=== PATIENT | female | born 1980 | race Caucasian/White ===

== ENCOUNTER 2018-04-07 09:13 | Emergency (ER) | payer MEDICAID, OTHER ==
[~2018-04-07 09:13] MED LIST: CEPH500C5 PO
[2018-04-07] MEDS ORDERED: epiNEPHrine 1 mg/ml inj SQ STA ×2 (09:26→10:39)
[2018-04-07] MEDS ORDERED: methylPREDNISolone sod succ 125mg/2ml vial IV ONE (09:30)
[2018-04-07] MEDS ORDERED: normal saline 1000ML IV soln IVB ONE ×2 (09:30)
[2018-04-07] MEDS ORDERED: racepinephrine 11.25mg/0.5ml nebule IH ONE (09:30)
[2018-04-07] MEDS ORDERED: famotidine/PF 10 mg/ml inj IV ONE (09:30)
[2018-04-07] MEDS ORDERED: diphenhydrAMINE 50 mg/ml inj IM ONE (09:30)
[2018-04-07] MEDS ORDERED: ondansetron/PF 4mg/2ml inj IV ONE ×2 (09:30)
[2018-04-07] MEDS ORDERED: tranexamic acid 100mg/ml inj. IV ONE (09:35)
[2018-04-07] MEDS ORDERED: TRANEXAMIC ACID IV ONE (09:40)
[2018-04-07] MEDS ORDERED: NORMAL SALINE IV ONE (09:40)
[2018-04-07 09:53] LABS: BASOPHILS % (AUTO) 0.5 % (0-1); EOSINOPHILS # (AUTO) 0.1 X10'3 (0-0.9); EOSINOPHILS % (AUTO) 2.1 % (0-6); HEMATOCRIT 35.2 % (35.0-45.0); HEMOGLOBIN 11.6 g/dl (12.0-16.0); LYMPHOCYTES # (AUTO) 1.8 X10'3 (1.1-4.8); LYMPHOCYTES % (AUTO) 25.1 % (21-51); MEAN CORPUSCULAR HEMOGLOBIN 27.7 PG (27.0-31.0); MEAN CORPUSCULAR HGB CONC 33.1 % (33.0-36.5); MEAN CORPUSCULAR VOLUME 83.7 FL (78-98); MEAN PLATELET VOLUME 7.4 FL (7.4-10.4); MONOCYTES # (AUTO) 0.4 X10'3 (0-0.9); MONOCYTES % (AUTO) 5.4 % (2-12); NEUTROPHILS # (AUTO) 4.7 X10'3 (1.8-7.7); NEUTROPHILS % (AUTO) 66.9 % (42-75); PLATELET COUNT 360 X10'3 (140-440); RED BLOOD COUNT 4.21 X10'6 (4.20-5.60); RED CELL DISTRIBUTION WIDTH 14.5 % (11.5-14.5)
[2018-04-07 10:07] LABS: ANION GAP 12 (8-16); BLOOD UREA NITROGEN 14 MG/DL (7-18); BUN/CREATININE RATIO 16.9 (6.6-38.0); CALCIUM 8.2 MG/DL (8.5-10.1); CHLORIDE 105 MMOL/L (99-107); CREATININE 0.83 MG/DL (0.40-0.90); GLUCOSE 118 MG/DL (70-104); POTASSIUM 3.2 MMOL/L (3.5-5.1); SODIUM 142 MMOL/L (135-145); TOTAL CARBON DIOXIDE 24.9 MMOL/L (24-32); eGFR 78 ML/MIN
[2018-04-07 10:08] LABS: ALANINE AMINOTRANSFERASE 32 U/L (12-78); ALBUMIN/GLOBULIN RATIO 0.9 (1.1-1.5); ALKALINE PHOSPHATASE 108 IU/L (46-116); ASPARTATE AMINO TRANSFERASE 28 U/L (10-37); BILIRUBIN,TOTAL 0.4 MG/DL (0.1-1.0); ETHANOL < 0.010 GM/DL (0.0-0.010); TOTAL PROTEIN 6.5 G/DL (6.4-8.2)
[2018-04-07] MEDS ORDERED: EPIN0.3P8 IM (10:25)
[2018-04-07 11:00] VITALS: BP 156/85
== END 2018-04-07 11:52 | disposition home or self-care (01) ==
LOC: ER 09:13
DX: T88.6XXA Anaphylactic reaction due to adverse effect of correct drug or medicament properly administered, initial encounter (principal); T43.625A Adverse effect of amphetamines, initial encounter; Y92.89 Other specified places as the place of occurrence of the external cause; Z79.899 Other long term (current) drug therapy
CPT/HCPCS: 36415; 80053; 80320; 85025; 86885; 86900; 86901; 93005; 94640; 94760; 96361; 96365; 96372; 96375; 99291; J0171; J1200; J2405; J2930; J3490; J7030

== ENCOUNTER 2022-06-19 17:29 | Emergency (ER) | payer MEDICAID ==
[~2022-06-19] VITALS: Ht 175.3 cm; Wt 95.5 kg
[~2022-06-19 17:29] MED LIST changes: -CEPH500C5 PO; +EPIN0.3P8 IM
[2022-06-19 18:06] VITALS: BP 116/79
[2022-06-19 18:26] LABS: BASOPHILS % (AUTO) 0.8 % (0-1); EOSINOPHILS # (AUTO) 0.2 X10'3 (0-0.9); EOSINOPHILS % (AUTO) 2.8 % (0-6); HEMATOCRIT 40.2 % (35.0-45.0); HEMOGLOBIN 13.6 g/dl (12.0-16.0); LYMPHOCYTES # (AUTO) 2.2 X10'3 (1.1-4.8); LYMPHOCYTES % (AUTO) 37.4 % (21-51); MEAN CORPUSCULAR HEMOGLOBIN 30.3 PG (27.0-31.0); MEAN CORPUSCULAR HGB CONC 33.8 g/dL (33.0-36.5); MEAN CORPUSCULAR VOLUME 89.6 FL (78-98); MEAN PLATELET VOLUME 9.1 FL (7.4-10.4); MONOCYTES # (AUTO) 0.5 X10'3 (0-0.9); MONOCYTES % (AUTO) 9.2 % (2-12); NEUTROPHILS % (AUTO) 49.8 % (42-75); PLATELET COUNT 224 X10'3 (140-440); RED BLOOD COUNT 4.49 X10'6 (4.20-5.60); RED CELL DISTRIBUTION WIDTH 13.9 % (11.5-14.5); WHITE BLOOD COUNT 5.9 X10'3 (4.5-11.0)
[2022-06-19 18:37] LABS: ALANINE AMINOTRANSFERASE 30 U/L (12-78); ALBUMIN 3.8 G/DL (3.4-5.0); ALBUMIN/GLOBULIN RATIO 1.2 (1.1-1.5); ALKALINE PHOSPHATASE 73 IU/L (46-116); ANION GAP 10 (8-16); ASPARTATE AMINO TRANSFERASE 15 U/L (10-37); BILIRUBIN,TOTAL 0.3 MG/DL (0.1-1.0); BLOOD UREA NITROGEN 14 MG/DL (7-18); BUN/CREATININE RATIO 18.2 (6.6-38.0); CALCIUM 8.4 MG/DL (8.5-10.1); CHLORIDE 107 MMOL/L (99-107); CREATININE 0.77 MG/DL (0.40-0.90); GLUCOSE 107 MG/DL (70-104); POTASSIUM 3.5 MMOL/L (3.5-5.1); SODIUM 142 MMOL/L (135-145); TOTAL CARBON DIOXIDE 24.9 MMOL/L (24-32); TOTAL PROTEIN 7.1 G/DL (6.4-8.2); eGFR 83 ML/MIN
== END 2022-06-19 19:00 | disposition left against medical advice (07) ==
LOC: ER 17:31
DX: R07.89 Other chest pain (principal); R20.0 Anesthesia of skin; Z53.21 Procedure and treatment not carried out due to patient leaving prior to being seen by health care provider
CPT/HCPCS: 36415; 80053; 84484; 85025; 93005

== ENCOUNTER 2023-05-10 08:09 | Emergency (ER) | payer MEDICAID ==
[~2023-05-10] VITALS: Ht 172.7 cm; Wt 97.0 kg
[2023-05-10 08:29] VITALS: BP 116/81
[2023-05-10] MEDS ORDERED: AMOX-117 PO (08:54)
[2023-05-10] MEDS ORDERED: IBUP-1985 PO (08:54)
== END 2023-05-10 09:16 | disposition home or self-care (01) ==
LOC: ER 08:10
DX: O26.891 Other specified pregnancy related conditions, first trimester (principal); K08.89 Other specified disorders of teeth and supporting structures; Z3A.24 24 weeks gestation of pregnancy; Z79.899 Other long term (current) drug therapy; Z79.2 Long term (current) use of antibiotics
CPT/HCPCS: 99283

== ENCOUNTER 2025-10-28 08:10 | Outpatient (CLI) | payer MEDICAID ==
[~2025-10-28 08:10] MED LIST changes: +IBUP600T52 PO
--- NOTE | 2025-10-28 10:47 | RADIOLOGY REPORT ---
CLINICAL INDICATION: PAIN IN RIGHT KNEE,OTHER INSTABILITY, RIGHT KNEE TECHNIQUE: Multiplanar, multisequence MRI of the right knee was performed without contrast. Contrast: None. COMPARISON: None FINDINGS: Joint space and synovium: There is small knee joint effusion. There is a popliteal fossa cyst measuring 3.8 cm. No significant synovitis. Bones and articular cartilage: There is no evidence of acute fracture or bone marrow edema. Heterogeneous marrow signal noted in the distal femur suggestive of red marrow reconversion. There is prominence in the lateral cortex of the proximal fibula without associated bone marrow edema which could be related to an old injury. The patellofemoral and tibiofemoral alignment are normal. The articular cartilage is preserved in the patellofemoral compartment. No significant articular cartilage loss in the medial tibiofemoral compartment. Mild chondral thinning in the lateral tibial plateau. Menisci: The medial meniscus is intact. Blunting of the free edge of the lateral meniscus consistent with free edge tear. Tendons and ligaments: The tendons in the posterior knee are intact. The extensor mechanism is intact. The anterior cruciate ligament is intact. The posterior cruciate ligament is intact. The medial collateral ligament and the lateral collateral ligament stabilizing complex are intact. Muscles: Regional muscles are preserved in bulk and signal characteristics. Other: None. IMPRESSION: 1. Free edge tear in the lateral meniscus of the right knee. 2. Mild articular cartilage loss in the lateral tibial plateau. 3. Small nolasco's cyst. 4. Hematopoietic marrow in the distal femur can be seen with anemia or other etiologies.
== END 2025-10-28 23:59 | disposition home or self-care (01) ==
LOC: MRI02 08:10
PROVIDERS: ATTEND Family Medicine Sports Medicine
DX: S83.281A Other tear of lateral meniscus, current injury, right knee, initial encounter (principal); S83.8X1A Sprain of other specified parts of right knee, initial encounter; M25.561 Pain in right knee; M25.361 Other instability, right knee; X58.XXXA Exposure to other specified factors, initial encounter; Y93.89 Activity, other specified; Y92.89 Other specified places as the place of occurrence of the external cause; Y99.8 Other external cause status; M71.21 Synovial cyst of popliteal space [Baker], right knee; M25.461 Effusion, right knee; R60.9 Edema, unspecified
CPT/HCPCS: 73721